=== PATIENT | male | born 1965 | race Two or more races ===

== ENCOUNTER 2024-07-15 19:44 | Emergency (ER) | payer MEDICAID ==
[~2024-07-15] VITALS: Ht 170.2 cm; Wt 68.0 kg
[2024-07-15 20:41] VITALS: PULSE 95; RESP 18; O2SAT 97
[2024-07-15 20:52] LABS: Basophils # (auto) 0 10 ^3/uL (0-0.2); Eosinophils # (auto) 0.1 10 ^3/uL (0-0.8); Lymphocytes # (auto) 1.6 10 ^3/uL (0.4-5.4); Lymphocytes % (auto) 26.3 % (10.0-50.0); Monocytes # (auto) 0.5 10 ^3/uL (0-1.3); Neutrophils # (auto) 3.9 10 ^3/uL (1.6-8.6); Nucleated Red Blood Cells % 0.1 %
[2024-07-15 20:53] LABS: Basophils % (auto) 0.3 % (0.0-2.0); Eosinophils % (auto) 1.2 % (0.0-7.0); Hematocrit 43.4 % (41.0-53.0); Hemoglobin 14.6 g/dL (13.5-17.5); Mean Corpuscular Hgb Conc. 33.7 g/dL (32.0-36.0); Mean Corpuscular Volume 80.2 fL (80.0-100.0); Monocytes % (auto) 8.5 % (0.0-12.0); Neutrophils % (auto) 63.7 % (37.0-80.0); Platelet Count (auto) 207 10^3/uL (140-450); Red Blood Cells 5.41 10^6/uL (4.5-5.90); Red Cell Distribution Width 16.7 % (11.8-14.3); White Blood Cell 6.1 10^3/uL (4.4-10.8)
[2024-07-15 21:11] LABS: Alanine Aminotransferase 35 U/L (7-40); Albumin 4.5 g/dL (3.2-4.8); Anion Gap 8 (5-15); Aspartate Aminotransferase 20 U/L (13-40); BUN/Creatinine Ratio 20.9 (10.0-20.0); Calcium 9.5 mg/dL (8.7-10.4); Carbon Dioxide 28 mmol/L (20-31); Chloride 100 mmol/L (98-107); Potassium 4.5 mmol/L (3.5-5.1); Sodium 136 mmol/L (136-145); Total Protein 7.1 g/dL (5.7-8.2)
[2024-07-15 21:16] LABS: Alkaline Phosphatase 229 U/L (46-116); Bilirubin, Total 1.3 mg/dL (0.2-1.0); Blood Urea Nitrogen 27 mg/dL (9-23); Glucose 305 mg/dL (74-106); Lipase 183 U/L (12-53)
[2024-07-15] MEDS: MORPHINE SULFATE INJ 2 MG/ml SYRG IV ONE (21:54)
[2024-07-15] MEDS: ASPirin 81 mg TAB PO ONE (22:03)
[2024-07-15 23:03] LABS: Urine Bacteria None Seen /hpf (None Seen)
--- NOTE | 2024-07-15 23:05 | ED.PDOC ---
History of Present Illness HPI Comments 58-year-old male is brought in by ambulance for complaint of intermittent, right-sided chest and right upper quadrant abdominal pain, that began, this morning. Patient endorses on sudden and unprovoked onset of symptoms. Denies any injuries, travel, spoiled food intake, ailments, or additional relevant rec ent events, with exception of running out of his Plavix, today. Describes pain as "tight" and "numb" in quality, with remote history of similar symptoms in the past. He reports never being told on findings made and only being given Morphine for pain management during hospitalization for same aforementioned previous episode. He denies having any is a breath, palpitations, nausea, vomiting, rare, or further associated symptoms or modifying factors. 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 Cardiac: Right-sided chest pain. No palpitations. Lungs: No shortness of breath, no cough. GI: Right upper quadrant abdominal pain. No nausea, no vomiting, no diarrhea, no constipation : No dysuria, frequency, or urgency. No hematuria. Musculoskeletal: No joint pain , no joint swelling, no extremity edema. Skin: No rash, no itching. Neuro: No headache, no dizziness, no weakness Vital Signs Vital Signs Date Time Temp Pulse Resp B/P (MAP) Pulse Ox O2 Delivery O2 Flow Rate FiO2 07/16/24 02:06 97.9 101 18 104/74 (84) 99 97.9 07/15/24 20:41 Room Air* 0 21 Physical Exam General: Awake, alert and oriented. No acute distress. Skin: Skin in warm, dry and intact. Appropriate color for ethnicity. HEENT: The head is normocephalic and atraumatic. Conjunctivae are clear without exudates or hemorrhage. Sclera is non-icteric. EOM are intact. No signs of nystagmus. Eyelids are normal in appearance without swelling or lesions. Oral m ucosa is pink and moist Neck: The neck is supple with normal range of motion. No JVD. Cardiac: Heart rate and rhythm are normal. No murmurs, gallops, or rubs are auscultated. Respiratory: No signs of respiratory distress. Lung sounds are clear in all lobes bilaterally without rales, rhonchi, or wheezes. Abdominal: Right upper quadrant abdominal tenderness. Otherwise, rest of abdomen is soft, non-tender without distention. Bowel sounds are present and normoactive in all four quadrants. Extremities: Left ankle swelling. Otherwise, remaining upper and lower extremities are atraumatic in appearance without deformity or edema. Neurological: The patient is awake, alert and oriented to person, place, and time with normal speech. Speech is clear. There is no facial asymmetry. Psychiatric: Appropriate mood and affect. Good judgement and insight. Past Medical History PAST MEDICAL HISTORY: CHF, DM, HTN Past Medical History (Other): On Plavix Surgical History: PTCA Family History Family History: Unknown Social History Smoker: Non-Smoker Alcohol: Denies ETOH Use Drugs: Denies Drug Use Lives In: Home Was a procedure done? Was a procedure done?: No EKG EKG #1: Pulse Rate (adult): 106 [place]: Normal Cardiac Rhythm: ST Block: None Hypertrophy: None ST: Normal EKG #2: Pulse Rate (adult): 104 [place]: Normal Cardiac Rhythm: ST Block: None Hypertrophy: None ST: Normal Differential Dx Considerations may include: Differential diagnoses considered include acute ischemic coronary syndrome, aortic dissection, cardiac tamponade, mediastinitis, pulmonary embolus, pne umothorax, tension pneumothorax, esophageal rupture, coronary artery vasospasm, myocarditis, pericarditis, pneumonia, pulmonary edema, esophageal tear, pancreatitis, aortic stenosis, dilated cardiomyopathy, hypertrophic cardiomyopathy, mitral valve prolapse, malignancy, pleuritis, pneumomediastinum, primary pulmonary hypertension, cholecystitis, esophageal spasm, esophagus, gastritis, GERD, peptic ulcer disease, costochondritis, fibromyalgia, rib fracture, herpes zoster, radicular syndromes, thoracic outlet syndrome, somatization. X-Ray, Labs, Meds, VS Vital Signs Date Time Temp Pulse Resp B/P (MAP) Pulse Ox O2 Delivery O2 Flow Rate FiO2 07/16/24 02:06 97.9 101 18 104/74 (84) 99 97.9 07/16/24 00:25 98.0 98 18 94/59 (71) 97 98.0 07/15/24 23:05 104 07/15/24 22:24 100 18 109/74 07/15/24 21:54 88 18 113/81 07/15/24 21:50 85 18 113/81 (92) 97 07/15/24 20:52 101 07/15/24 20:41 98.1 95 18 91/61 (71) 97 98.1 07/15/24 20:41 95 18 97 Room Air* 0 21 07/15/24 20:10 98.4 108 18 91/58 (69) 99 98.4 07/15/24 19:45 106 Lab Test 07/15/24 23:45 07/15/24 21:54 07/15/24 21:45 07/15/24 21:00 Range/Units Troponin I High Sensitivity 7 8 </=54 ng/L Urine Color Light-yellow Yellow Urine Clarity Clear Clear Urine pH 5.5 5.0-9.0 Urine Specific [place] 1.029 1.001-1.035 Urine Protein Negative Negative Urine Ketones Negative Negative Urine Blood Negative Negative /uL Urine Nitrite Negative Negative Urine Bilirubin Negative Negative Urine Urobilinogen Normal Negative mg/dL Urine Leukocyte Esterase Negative Negative /uL Urine RBC None seen 0 - 3 /hpf Urine Microscopic WBC < 1 0-3 /HPF Urine Squamous Epithelial Cells None seen <5 /hpf Urine Bacteria None seen None Seen /hpf Urine Glucose 4+ H Normal mg/dL POC Glucose 272 H 70-106 mg/dl Test 07/15/24 20:45 Range/Units White Blood Count 6.1 4.4-10.8 10^3/uL Red Blood Count 5.41 4.5-5.90 10^6/uL Hemoglobin 14.6 13.5-17.5 g/dL Hematocrit 43.4 41.0-53.0 % Mean Corpuscular Volume 80.2 80.0-100.0 fL Mean Corpuscular Hemoglobin 27.0 L 28.0-32.0 pg Mean Corpuscular Hemoglobin Concent 33.7 32.0-36.0 g/dL Red Cell Distribution Width 16.7 H 11.8-14.3 % Platelet Count 207 140-450 10^3/uL Mean Platelet Volume 9.1 6.9-10.8 fL Neutrophils (%) (Auto) 63.7 37.0-80.0 % Lymphocytes (%) (Auto) 26.3 10.0-50.0 % Monocytes (%) (Auto) 8.5 0.0-12.0 % Eosinophils (%) (Auto) 1.2 0.0-7.0 % Basophils (%) (Auto) 0.3 0.0-2.0 % Neutrophils # (Auto) 3.9 1.6-8.6 10 ^3/uL Lymphocytes # (Auto) 1.6 0.4-5.4 10 ^3/uL Monocytes # (Auto) 0.5 0-1.3 10 ^3/uL Eosinophils # (Auto) 0.1 0-0.8 10 ^3/uL Basophils # (Auto) 0 0-0.2 10 ^3/uL Nucleated Red Blood Cells 0.1 % D-Dimer, Quantitative 0.62 H 0.0-0.49 mg/L FEU Sodium Level 136 136-145 mmol/L Potassium Level 4.5 3.5-5.1 mmol/L Chloride Level 100 98-107 mmol/L Carbon Dioxide Level 28 20-31 mmol/L Anion Gap 8 5-15 Blood Urea Nitrogen 27 H 9-23 mg/dL Creatinine 1.29 0.700-1.30 mg/dL Glomerular Filtration Rate Calc 65 >90 mL/min BUN/Creatinine Ratio 20.9 H 10.0-20.0 Serum Glucose 305 H 74-106 mg/dL Calcium Level 9.5 8.7-10.4 mg/dL Total Bilirubin 1.3 H 0.2-1.0 mg/dL Aspartate Amino Transferase (AST) 20 13-40 U/L Alanine Aminotransferase (ALT) 35 7-40 U/L Alkaline Phosphatase 229 H 46-116 U/L Troponin I High Sensitivity 7 </=54 ng/L B-Type Natriuretic Peptide 250.55 0-100 pg/mL Total Protein 7.1 5.7-8.2 g/dL Albumin 4.5 3.2-4.8 g/dL Lipase 183 H 12-53 U/L Current Medications Medications (Trade) Dose Ordered Sig/Ward Route Start Time Stop Time Status Last Admin Morphine Sulfate 2 mg ONCE ONCE IV 07/15/24 20:45 07/15/24 20:46 DC 07/15/24 21:54 Sodium Chloride 250 ml @ 250 mls/hr Q1H ONCE IV 07/16/24 01:00 07/16/24 01:59 DC 07/16/24 01:43 [place] [id number] Ph: [phone] DIAGNOSTIC IMAGING Diagnostic Imaging Report : [id number] Signed PATIENT: SHANNON MORGAN ACCT: [id number] UNIT: [id number] : 1965 LOC: ER ROOM / BED: / AGE / SEX: 58 / M ADM STATUS: REG ER SERVICE [id number] ORDERING PHYSICIAN: KATJA ZUNIGA MD PROCEDURE(s): CTACH - CT ANGIO CHEST CONTRAST REASON: Chest pain, shortness of breath, elevated D-dimer ORDER NUMBER(s): [id number], ACCESSION NUMBER(s): [id number] CTA Chest with intravenous contrast INDICATION: Chest pain, shortness of breath, elevated D-dimer COMPARISON: None TECHNIQUE: Multidetector spiral CTA of the chest was performed of the chest with intravenous contrast. PULMONARY ANGIOGRAPHY PROTOCOL was utilized using a bolus- tracking technique centered on the main pulmonary artery. Axial, coronal and sagittal multiplanar and MIP reformats were performed. Radiation Dose : 1. Chest: CTDI volume is 5.92 mGy. Dose-length product is 710.53 mGy*cm The dose indicators for CT are the volume Computed Tomography (CT) Dose Index (CTDIvol) and the Dose Length Product (DLP), and are measured in units of mGy and mGy-cm, respectively. These indicators are not patient dose, but values generated from the CT scanner acquisition factors. The report includes radiation exposure data for exposures received during this examination. Findings: Pulmonary artery: No pulmonary embolism. The main pulmonary artery measures 2.5 cm in the ascending aorta measures 3.3 cm. Atherosclerotic vascular calcifications are present within the aorta and coronary arterial vasculature. Coronary artery stent noted. Lower neck: Normal thyroid. Lungs: No focal consolidation, pleural effusion or pneumothorax. Heart/Vascular Structures: Normal heart size. No pericardial effusion. Lymph Nodes: No adenopathy Pleura: No pleural effusion or significant pneumothorax. Musculoskeletal: No acute osseous abnormality. Soft tissues: Normal. Upper abdomen: Cholelithiasis. Limited portions of the upper abdomen are otherwise unremarkable. IMPRESSION: 1. No pulmonary embolism. 2. No acute thoracic finding. 3. Cholelithiasis. ATED BY: GLENROY FLORENCE MD DICTATED DATE/TIME: 07/16/2448 SIGNED BY: GLENROY FLORENCE MD SIGNED DATE/TIME: 07/16/2448 CC: [place] [id number] Ph: [phone] DIAGNOSTIC IMAGING Diagnostic Imaging Report : [id number] Signed PATIENT: SHANNON MORGAN ACCT: [id number] UNIT: [id number] : 1965 LOC: ER ROOM / BED: / AGE / SEX: 58 / M ADM STATUS: REG ER SERVICE 30 ORDERING PHYSICIAN: KATJA ZUNIGA MD PROCEDURE(s): CXR1 - CHEST XRAY 1 VIEW REASON: cp ORDER NUMBER(s): [id number], ACCESSION NUMBER(s): [id number] CHEST RADIOGRAPH Indication: cp Technique: Single frontal view of the chest was obtained COMPARISON: None FINDINGS: Lines and Tubes: None Lungs: Clear Pleura: No effusion. No pneumothorax. Cardiomediastinal contours: Unremarkable Bones: Unremarkable IMPRESSION: 1. No acute disease. ATED BY: GLENROY FLORENCE MD DICTATED DATE/TIME: 07/15/242310 SIGNED BY: GLENROY FLORENCE MD SIGNED DATE/TIME: 07/15/242310 CC: Images Reviewed?: Images reviewed and evaluated by me (Independent i nterpretation of chest x-ray: No acute disease) Time of 1ST Reevaluation: 21:00 Reevaluation 1ST: Unchanged Patient Education/Counseling: Need For Follow Up Family Education/Counseling: No Family Present Departure 1 Departure Time of Disposition: 00:57 Impression: Primary Impression: Chest pain Additional Impressions: Elevated liver function tests Gallstones Disposition: 01 HOME / SELF CARE / HOMELESS Condition: Stable Additional Instructions: ED DISCHARGE INSTRUCTIONS Instructions: Please read all instructions provided in this packet carefully. Your CAT scan showed that you have gallstones today. Your liver function tests are elevated. It is very important that you follow up with the primary care provider for further evaluation and testing. Although you have been discharged from the Emergency Department, this does not mean that you have a "clean bill of health". No definitive diagnosis for your symptoms has been made today. It is possible that you are in the process of developing a serious illness. This is why you must return to the ED without fail if any new or worsening symptoms (especially if your symptoms include chest pain, trouble breathing, abdominal pain, fever, headache, confusion, trouble seeing, or trouble walking) It is also very important that you see a primary care doctor within the next 3-5 days to follow up. If you are unable to get an appointment, return to the ED for re-evaluation. CHEST PAIN EDUCATION There are many things that can cause chest pain. Some are not serious and will get better on their own in a few days. But some kinds of chest pain need more testing and treatment. Your doctor may have recommended a follow-up visit in the next few days. If you are not getting better, you may need more tests or treatment. Even though your doctor has released you, you still need to watch for any problems. The doctor carefully checked you, but sometimes problems can develop later. If you have new symptoms or if your symptoms do not get better, get medical care right away. If you have worse or different chest pain or pressure that lasts more than 5 minutes or you passed out (lost consciousness), call 911 or seek other emergency help right away. A medical visit is only one step in your treatment. Even if you feel better, you still need to do what your doctor recommends, such as going to all suggested follow-up appointments and taking medicines exactly as directed. This will help you recover and help prevent future problems. How can you care for yourself at home? Rest until you feel better. Take your medicine exactly as prescribed. Call your doctor if you think you are having a problem with your medicine. Do not drive after taking a prescription pain medicine. When should you call for help? Call 911 if: You passed out (lost consciousness). You have severe difficulty breathing. You have symptoms of a heart attack. These may include: Chest pain or pressure, or a strange feeling in your chest. Sweating. Shortness of breath. Nausea or vomiting. Pain, pressure, or a strange feeling in your back, neck, jaw, or upper belly or in one or both shoulders or arms. Lightheadedness or sudden weakness. A fast or irregular heartbeat. After you call 911, the absorber operator may tell you to chew 1 adult-strength or 2 to 4 low-dose aspirin. Wait for an ambulance. Do not try to drive yourself. Call your doctor now or seek immediate medical care if: You have any trouble breathing. You have new or different chest pain. You are dizzy or lightheaded, or you feel like you may faint. Watch closely for changes in your health, and be sure to contact your doctor if you do not get better as expected. Current as of: October 05, 2023 Author: [employer] Staff? Gallstones: Care Instructions Gallstones are stones made of cholesterol and other substances that form in the gallbladder. The gallbladder stores bile. Bile helps the body digest food. Gallstones also can form in the bile duct. This is the tube that carries bile from the gallbladder and the liver to the small intestine. Gallstones that block the gallbladder from emptying or get stuck in the bile duct can cause pain and infection. Sometimes a thick material called "sludge" forms instead of stones. This can cause the same problems as gallstones. The doctor may have given you medicine for pain. You may need follow-up appointments for more testing and treatment. If you continue to have problems, you may need surgery to remove your gallbladder. The doctor has checked you carefully, but problems can develop later. If you notice any problems or new symptoms, get medical treatment right away . Follow-up care is a rodriguez part of your treatment and safety. Be sure to make and go to all appointments, and call your doctor if you are having problems. It's also a good idea to know your test results and keep a list of the medicines you take. How can you care for yourself at home? Rest until you feel better. Be safe with medicines. Read and follow all instructions on the label. If the doctor gave you a prescription medicine for pain, take it as prescribed. If you are not taking a prescription pain medicine, ask your doctor if you can take an [id number] medicine. Avoid foods that cause symptoms, especially fatty foods. These can make the gallbladder tighten and cause pain. When should you call for help? Call your doctor now or seek immediate medical care if: You are vomiting. You have new or worse belly pain. You have a fever. You cannot pass stools or gas. Watch closely for changes in your health, and be sure to contact your doctor if you have any problems. Credits for Gallstones: Care Instructions Current as of: December 24, 2023 Author: [employer] Staff Clinical Review Board All [employer] education is reviewed by a team that includes physicians, nurses, advanced practitioners, registered dieticians, and other healthcare professionals. LIVER FUNCTION TESTS EDUCATION: What does it mean to have elevated liver enzymes? If you have high levels of liver enzymes in your blood, you have elevated liver enzymes. High liver enzyme levels may be temporary, or they may be a sign of a medical condition like hepatitis or liver disease. Certain medications can also cause elevated liver enzymes. What are liver enzymes? Liver enzymes are proteins that speed up chemical reactions in your body. These chemical reactions include producing bile and substances that help your blood clot, breaking down food and toxins, and fighting infection. Common liver enzymes include: Alkaline phosphatase (ALP). Alanine transaminase (ALT). Aspartate transaminase (AST). Gamma-glutamyl transferase (GGT). If your liver is injured, it releases enzymes into your bloodstream (most commonly ALT or AST). Why does a healthcare provider check liver enzymes? Your healthcare provider may check your liver enzyme levels with a liver function test (LFT) or liver panel. A liver function test is a type of blood test. Your provider may order an LFT during a regular checkup if youre at risk for liver injury or disease or if you have symptoms of liver damage. Possible Causes What causes elevated liver enzymes? Liver diseases, medical conditions, medications and infections can cause elevated liver enzymes. What are the risk factors for elevated liver enzymes? Factors that put you at risk for elevated liver enzymes include: Alcohol use. Certain medications, herbs and vitamin supplements. Diabetes. Family history of liver disease. Hepatitis or exposure to hepatitis. What are the symptoms of elevated liver enzymes? Most people with elevated liver enzymes dont have symptoms. If liver damage is the cause of elevated liver enzymes, you may have symptoms such as: Abdominal (stomach) pain. Dark urine (pee). Fatigue (feeling tired). Itching. Jaundice (yellowing of your skin or eyes). Light-colored stools (poop). Loss of appetite. Nausea and vomiting. Care and Treatment Elevated liver enzymes have a variety of causes, including liver disease and medication. Elevated liver enzymes may also be temporary. If your blood test shows high levels of liver enzymes, talk with your provider. Theyll work to figure out the cause. (From [facility]) e-Prescriptions Clopidogrel Bisulfate (Plavix) 75 Mg Tab 1 TAB PO DAILY for 30 Days, #30 TAB 1 Refill Prov: KATJA ZUNIGA MD 07/16/24 Comments 58-year-old male who presented to the emergency department with right-sided chest pain. EKG negative for signs of ischemia. High sensitivity troponin negative. CXR shows no acute process. CT angiogram negative for pulmonary embolism however does show gallstones. Patient has mild elevation of alk-phos only. Presentation not suggestive of acute coronary syndrome, pulmonary embolism or aortic dissection. Patient improved at time of discharge. No hypoxia, respiratory distress or dyspnea at discharge. Patient able to ambulate without difficulty. Patient felt safe for discharge home. Patient well-appearing, nontoxic. Advised prompt follow-up with PCP, return to the ED with any new, worsening or concerning symptoms. Extensive evaluation was performed in attempt to identify or rule out: (See differential diagnosis section) The following tests were ordered, and results were reviewed by me and discussed with patient: (See diagnostic results section) The following test were independently interpreted by me: EKG I reviewed and agreed with the following test results read by other providers: Chest x-ray I reviewed the following notes from the pt's past medical encounters: N/A Additional information was gathered from interviewing the following independent historians: EMS Discussion of management or test interpretation with external physician/other qualified health director of medicare: N/A Drug therapy requiring intensive monitoring for toxicity: N/A Parenteral controlled substances: IV morphine Decision regarding elective major surgery with identified patient or procedure risk factors: N/A Decision regarding emergency major surgery: N/A Decision not to resuscitate or to de-escalate care because of poor prognosis: N/A Diagnosis or treatment significantly limited by social determinants of health: N/A Decision regarding hospitalization or escalation of hospital level of care: Risks and benefits of admission for further treatment of patient's condition was considered however due to patient's stable condition patient will be discharged to follow up closely or return to care for worsening of condition or inability to follow up. Critical Care Note Critical Care Time?: No Stability Stability form required: No Heart Score Heart Score: Heart Score Response (Comments) Value History Moderate Suspicious 1 EKG Normal 0 Age 45-64 1 Risk Factors >3 or Hx ASHD 2 Troponin Normal limit 0 Total 4 I personally scribed for KATJA ZUNIGA MD ([email or web address]) on 07/15/24 at 23:05. Electronically submitted by Westley Whitlock ([email or web address]). I personally scribed for KATJA ZUNIGA MD ([email or web address]) on 07/16/24 at 01:33. Electronically submitted by Westley Whitlock ([email or web address]). KATJA ZUNIGA MD July 15, 2024 23:05
--- NOTE | 2024-07-15 23:13 | DVH ---
CHEST RADIOGRAPH Indication: cp Technique: Single frontal view of the chest was obtained COMPARISON: None FINDINGS: Lines and Tubes: None Lungs: Clear Pleura: No effusion. No pneumothorax. Cardiomediastinal contours: Unremarkable Bones: Unremarkable IMPRESSION: 1. No acute disease.
[2024-07-15 23:15] LABS: Urine Blood Negative /uL (Negative); Urine Clarity Clear (Clear); Urine Color Light-Yellow (Yellow); Urine Protein, UAD Negative (Negative); Urine Specific Gravity 1.029 (1.001-1.035); Urine Squamous Epithelial Cell None Seen /hpf (<5); Urine Urobilinogen Normal (Negative); Urine pH 5.5 (5.0-9.0)
--- NOTE | 2024-07-16 00:18 | ECG ---
[facility] Test Date: 2024-07-15 Test Time: 19:45:28 Pat Name: SHANNON MORGAN Department: ED Room: Gender: M Coremaker Bench: : 1965 Requested By: KATJA ZUNIGA Order Number: [id number] Reading MD: Dash Helm Measurements Intervals [place] Rate: 106 P: 66 NC: 148 QRS: 4 QRSD: 77 T: 36 QT: 352 QTc: 468 Interpretive Statements Sinus tachycardia Consider left atrial enlargement Borderline T wave abnormalities Electronically Signed On 07-18-2024 12:44:11 PDT by Dash Helm Please click the below link to view image of tracing.
--- NOTE | 2024-07-16 00:19 | ECG ---
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
[2024-07-16] MEDS: IOHEXOL 350 MG/ML 100ML IJ ONE (00:40)
[2024-07-16 00:48] LABS: Urine WBC < 1 /HPF (0-3)
--- NOTE | 2024-07-16 00:51 | DVH ---
CTA Chest with intravenous contrast INDICATION: Chest pain, shortness of breath, elevated D-dimer COMPARISON: None TECHNIQUE: Multidetector spiral CTA of the chest was performed of the chest with intravenous contrast . PULMONARY ANGIOGRAPHY PROTOCOL was utilized using a bolus-tracking technique centered on the main p ulmonary artery. Axial, coronal and sagittal multiplanar and MIP reformats were performed. Radiation Dose : 1. Chest: CTDI volume is 5.92 mGy. Dose-length product is 710.53 mGy*cm The dose indicators for CT are the volume Computed Tomography (CT) Dose Index (CTDIvol) and the Dose Length Product (DLP), and are measured in units of mGy and mGy-cm, respectively. These indicators are not patient dose, but values generated from the CT scanner acquisition factors. The report includes radiation exposure data for exposures received during this examination. Findings: Pulmonary artery: No pulmonary embolism. The main pulmonary artery measures 2.5 cm in the ascending aorta measures 3.3 cm. Atherosclerotic va scular calcifications are present within the aorta and coronary arterial vasculature. Coronary artery stent noted. Lower neck: Normal thyroid. Lungs: No focal consolidation, pleural effusion or pneumothorax. Heart/Vascular Structures: Normal heart size. No pericardial effusion. Lymph Nodes: No adenopathy Pleura: No pleural effusion or significant pneumothorax. Musculoskeletal: No acute osseous abnormality. Soft tissues: Normal. Upper abdomen: Cholelithiasis. Limited portions of the upper abdomen are otherwise unremarkable. IMPRESSION: 1. No pulmonary embolism. 2. No acute thoracic finding. 3. Cholelithiasis.
[2024-07-16] MEDS: SODIUM CHLORIDE 0.9% 250 ML IV ONE (01:43)
[2024-07-16 02:06] VITALS: BP 104/74; PULSE 101; RESP 18; TEMP 97.9; O2SAT 99
[2024-07-16] MEDS ORDERED: CLOP75TA28 PO (02:10)
[2024-07-18] MEDS ORDERED: METO25TA93 PO (00:53)
[2024-07-18] MEDS ORDERED: GABA-1250 PO (00:53)
[2024-07-18] MEDS ORDERED: FURO40TA4 PO (00:53)
[2024-07-18] MEDS ORDERED: LOS25T PO (00:53)
[2024-07-18] MEDS ORDERED: FURO20TA4 PO (00:53)
[2024-07-18] MEDS ORDERED: ATOR40TA52 PO (00:53)
[2024-07-18] MEDS ORDERED: ASPI-325 PO (00:53)
[2024-07-18] MEDS ORDERED: SPIR25TA8 PO (00:53)
[2024-07-18] MEDS ORDERED: CLOP75TA70 PO (00:53)
[2024-07-18] MEDS ORDERED: EMPA1TAB PO (00:53)
== END 2024-07-16 02:15 | disposition home or self-care (01) ==
LOC: EDBD 19:44 → ER 19:48
DX: K80.20 Calculus of gallbladder without cholecystitis without obstruction (principal); R07.89 Other chest pain; I11.0 Hypertensive heart disease with heart failure; I50.9 Heart failure, unspecified; E11.9 Type 2 diabetes mellitus without complications; Z98.890 Other specified postprocedural states
CPT/HCPCS: 36415; 71045; 71275; 80053; 81001; 82947; 83690; 83880; 84484; 85025; 85379; 93005; 96374; 99285; J2270; J7050; Q9967; 82962